=== PATIENT | male | born 1985 | race Hispanic/Latino ===

== ENCOUNTER 2019-12-09 22:04 | Emergency (ER) | payer OTHER ==
[2019-12-09] MEDS ORDERED: ASPIRIN 325 MG TABLET ONE (22:13)
[2019-12-09 22:23] LABS: BASOPHILS % (AUTO) 0.7 % (0.0-5.0); EOSINOPHILS % (AUTO) 4.1 % (0.0-8.0); HEMATOCRIT 42.9 % (42-54); LYMPHOCYTES % (AUTO) 29.6 % (21.0-51.0); MEAN CORPUSCULAR HEMOGLOBIN 29.3 pg (27.0-33.0); MEAN CORPUSCULAR HGB CONC 34.3 g/dL (32.0-36.0); MEAN CORPUSCULAR VOLUME 85.5 fL (79-99); MONOCYTES % (AUTO) 8.4 % (3.0-13.0); NEUTROPHILS % (AUTO) 56.5 % (40.0-77.0); PLATELET COUNT (AUTO) 276 K/uL (130-400); RED BLOOD CELL COUNT(AUTO) 5.02 MIL/uL (4.50-6.20); RED CELL DISTRIBUTION WIDTH 11.9 % (11.0-15.5); WHITE BLOOD COUNT (AUTO) 8.2 K/uL (4.8-10.8)
[2019-12-09 22:33] LABS: CREATININE 0.9 mg/dL (0.5-1.5); POTASSIUM 3.6 mmol/L (3.5-5.1)
[2019-12-09 22:35] LABS: INR 0.95 (0.85-1.15); PROTHROMBIN TIME 10.3 SEC (9.6-11.6)
[2019-12-09 22:38] LABS: BILIRUBIN,TOTAL 0.4 mg/dL (0.2-1.0); TOTAL PROTEIN, SERUM 7.5 g/dL (6.0-8.3)
[2019-12-09 22:44] LABS: APPEARANCE,URINE Clear (CLEAR); BILIRUBIN,URINE Negative (NEGATIVE); COLOR,URINE Yellow (YELLOW); GLUCOSE, URINE (UA) Negative (NEGATIVE); KETONES,URINE Trace mg/dL (NEGATIVE); LEUKOCYTE ESTERASE ,URINE Negative (NEGATIVE); NITRATE,URINE Negative (NEGATIVE); OCCULT BLOOD,URINE Negative (NEGATIVE); PROTEIN,URINE Negative (NEGATIVE)
[2019-12-09 22:52] LABS: AMPHET/METH SCREEN,URINE NEGATIVE (NEGATIVE); BARBITURATE SCREEN, URINE NEGATIVE (NEGATIVE); BENZODIAZEPINES SCREEN,URINE NEGATIVE (NEGATIVE); CANNABINOID SCREEN,URINE NEGATIVE (NEGATIVE); COCAINE SCREEN,URINE NEGATIVE (NEGATIVE); OPIATE SCREEN,URINE NEGATIVE (NEGATIVE); PHENCYCLIDINE SCREEN,URINE NEGATIVE (NEGATIVE)
[2019-12-09] MEDS ORDERED: MAG HYDROX/AL HYDROX/SIMETH ES 30 ML SUSP UDCUP ONE (23:58)
[2019-12-09] MEDS ORDERED: LIDOCAINE HCL 2% VISCOUS 15 ML UDCUP ONE (23:59)
[2019-12-09] MEDS ORDERED: FAMOTIDINE/PF 20 MG/2 ML VIAL IV ONE (23:59)
== END 2019-12-10 01:21 | disposition home or self-care (01) ==
LOC: EDH 22:04
DX: K29.70 Gastritis, unspecified, without bleeding (principal); R07.89 Other chest pain; I10 Essential (primary) hypertension; Z72.0 Tobacco use
CPT/HCPCS: 36415; 71045; 80053; 80305; 81003; 82550; 83690; 84484; 85025; 85610; 85730; 93005; 96361; 96374; J3490

== ENCOUNTER 2023-10-26 13:52 | Emergency (ER) | payer OTHER ==
[~2023-10-26] VITALS: Ht 165.1 cm; Wt 107.5 kg
[2023-10-26] MEDS ORDERED: NITROGLYCERIN 0.4 MG SL TAB SL PRN (14:00)
[2023-10-26 14:46] LABS: BASOPHILS # (AUTO) 0.06 K/uL (0.00-0.20); BASOPHILS % (AUTO) 0.8 % (0.0-5.0); HEMATOCRIT 44.3 % (42-54); IMMATURE GRANULOCYTE ABSOLUTE 0.03 K/uL (0-1); LYMPHOCYTES # (AUTO) 2.3 K/uL (1.0-4.8); LYMPHOCYTES % (AUTO) 30.6 % (21.0-51.0); MEAN CORPUSCULAR HEMOGLOBIN 30.2 pg (27.0-33.0); MEAN CORPUSCULAR HGB CONC 34.5 g/dL (32.0-36.0); MEAN CORPUSCULAR VOLUME 87.4 fL (79-99); MONOCYTES # (AUTO) 0.7 K/uL (0.1-1.0); MONOCYTES % (AUTO) 8.9 % (3.0-13.0); NEUTROPHILS # (AUTO) 4.1 K/uL (1.8-7.7); NEUTROPHILS % (AUTO) 55.3 % (40.0-77.0); PLATELET COUNT (AUTO) 265 K/uL (130-400); RED BLOOD CELL COUNT(AUTO) 5.07 MIL/uL (4.50-6.20); RED CELL DISTRIBUTION WIDTH 11.9 % (11.0-15.5); WHITE BLOOD COUNT (AUTO) 7.4 K/uL (4.8-10.8)
[2023-10-26] MEDS: ASPIRIN 325MG TAB PO ONE (14:48)
[2023-10-26 14:55] LABS: CREATININE 0.8 mg/dL (0.5-1.5); POTASSIUM 3.3 mmol/L (3.5-5.1)
[2023-10-26 14:59] LABS: BILIRUBIN,TOTAL 0.7 mg/dL (0.2-1.0); TOTAL PROTEIN, SERUM 7.6 g/dL (6.0-8.3)
[2023-10-26 16:54] VITALS: BP 130/74; PULSE 68; RESP 21; O2SAT 96
[2023-10-26] MEDS: KCL 20 MEQ ERTAB PO ONE (16:57)
== END 2023-10-26 17:08 | disposition home or self-care (01) ==
LOC: EDH 13:52
DX: R07.89 Other chest pain (principal); I10 Essential (primary) hypertension; R00.2 Palpitations; E87.6 Hypokalemia
CPT/HCPCS: 36415; 71045; 80053; 84484; 85025; 93005

== ENCOUNTER 2024-08-03 12:13 | Emergency (ER) | payer SELFPAY ==
[~2024-08-03] VITALS: Ht 165.1 cm; Wt 95.3 kg
[2024-08-03 13:09] LABS: CREATININE 0.8 mg/dL (0.5-1.3); POTASSIUM 4.1 mmol/L (3.5-5.1)
--- NOTE | 2024-08-03 13:09 | ERN ---
ED Note History of Present Illness Stated Complaint: CHEST PAIN Chief Complaint: Chest Pain Time Seen by MD: 12:16 Dictation: 39-year-old male presents to the ED for evaluation of intermittent chest pain onset last night. Patient denies any shortness a breath, vomiting, sweats or any other associated symptoms at this time. Patient mentioned he has had similar chest pain episodes before. Medical history HTN. Medications- losartan and rosuvastatin. Patient denies any chest pain at this moment. Allergies: Coded Allergies: No Known Drug Allergies (Unverified Allergy, Unknown, 10/26/23) Past Medical History Past Medical History: High Cholesterol, Hypertension Surgical History: None Review of System Dictation Constitutional: Negative for fever,chills, and weight loss Eyes: Negative for injury, pain,redness, and discharge ENT: Negative for injury,pain or swelling Cardiovascular: Positive for chest pain, negative for palpitations, and edema Respiratory: Negative for shortness of breath, cough, and wheezing, Abdomen/GI: Negative for abdominal pain, nausea, vomiting, diarrhea, and constipation Back: Negative for injury and pain : Negative for injury, bleeding and discharge MS/Extremity: Negative for injury and deformity Skin: Negative for rash, and discoloration Neuro: Negative for headache, weakness, numbness, tingling, and seizure Psych: Negative for suicide ideation, homicidal ideation, and hallucinations Initial Vital Sign VS Vital Signs Date Time Temp Pulse Resp B/P (MAP) Pulse Ox O2 Delivery O2 Flow Rate FiO2 08/03/24 12:14 98.4 66 20 140/87 98 Room Air 0 08/03/24 12:52 21 Physical Exam Dictation General: awake, alert, NAD Head/Face: Normocephalic, atraumatic Eyes: PERRL, EOMI, vision at baseline ENT: oral cavity clear, TMs clear, no signs of infection Neck: Trachea midline, supple, no nuchal rigidity Cardiovascular: RRR, normal S1/S2, No MRGs, no JVD Respiratory: CTAB, no respiratory distress, No rales or wheezes Abdomen: Soft, non-tender, non-distended, normal bowel sounds, no guarding or rebound. Skin: Warm, dry, normal turgor, no rash MS/Extremity: Pulses equal, no cyanosis, neurovascular intact, FROM Neuro: COAx4, GCS 15, strength 5/5, CN 2-12 intact, normal cerebellar exam, normal gait, Psych: Normal behavior, mood, and affect normal Results (Laboratory/Radiology) Laboratory/Radiology Laboratory Tests Test 08/03/24 12:39 08/03/24 13:06 08/03/24 13:48 08/03/24 15:03 White Blood Count 8.4 K/uL (4.8-10.8) Red Blood Count 5.35 MIL/uL (4.50-6.20) Hemoglobin 16.1 g/dL (14.0-18.0) Hematocrit 46.9 % (42-54) Mean Corpuscular Volume 87.7 fL (79-99) Mean Corpuscular Hemoglobin 30.1 pg (27.0-33.0) Mean Corpuscular Hemoglobin Concent 34.3 g/dL (32.0-36.0) Red Cell Distribution Width 11.8 % (11.0-15.5) Platelet Count 303 K/uL (130-400) Mean Platelet Volume 10.1 fL (7.5-10.5) Immature Granulocyte % (Auto) 0.7 % (0-1) Neutrophils (%) (Auto) 47.6 % (40.0-77.0) Lymphocytes (%) (Auto) 36.5 % (21.0-51.0) Monocytes (%) (Auto) 8.4 % (3.0-13.0) Eosinophils (%) (Auto) 6.1 % (0.0-8.0) Basophils (%) (Auto) 0.7 % (0.0-5.0) Neutrophils # (Auto) 4.0 K/uL (1.8-7.7) Lymphocytes # (Auto) 3.1 K/uL (1.0-4.8) Monocytes # (Auto) 0.7 K/uL (0.1-1.0) Eosinophils # (Auto) 0.51 K/uL (0.00-0.70) Basophils # (Auto) 0.06 K/uL (0.00-0.20) Absolute Immature Granulocyte (auto 0.06 K/uL (0-1) Nucleated Red Blood Cells 0.0 % (0.0-0.19) Sodium Level 138 mmol/L (136-145) Potassium Level 4.1 mmol/L (3.5-5.1) Chloride Level 103 mmol/L (101-111) Carbon Dioxide Level 28 mmol/L (21-32) Blood Urea Nitrogen 10 mg/dL (7-18) Creatinine 0.8 mg/dL (0.5-1.3) Glomerular Filtration Rate Calc 115 mL/min (>90) Random Glucose 102 mg/dL (70-105) Total Calcium 8.8 mg/dL (8.5-10.1) Total Creatine Kinase 119 U/L (21-232) B-Type Natriuretic Peptide 14 pg/mL (0-100) Troponin I < 0.05 ng/mL (0.00-0.05) Urine Color COLORLESS (YELLOW) Urine Appearance CLEAR (CLEAR) Urine pH 7.0 (5.0-8.0) Urine Specific [place] 1.009 (1.001-1.031) Urine Protein NEGATIVE mg/dL (NEGATIVE) Urine Glucose (UA) NEGATIVE mg/dL (NEGATIVE) Urine Ketones NEGATIVE mg/dL (NEGATIVE) Urine Occult Blood NEGATIVE (NEGATIVE) Urine Nitrate NEGATIVE (NEGATIVE) Urine Bilirubin NEGATIVE mg/dL (NEGATIVE) Urine Urobilinogen 0.2 mg/dL (0.2-1.0) Urine Leukocyte Esterase NEGATIVE Aide/uL Troponin I High Sensitivity 6 ng/L (4-75) Labs Reviewed?: Yes EKG Comment: EKG 08/03/2024 time 11:47 a.m. ventricular rate 65, sinus rhythm, incomplete right bundle branch block. No STEMI ED Course ED Course Orders Procedure Category Date Status Time Vital Signs Per CPOE 08/03/24 Transmitted Routine 12:16 B-Type Natriuretic LAB 08/03/24 Complete Peptide 12:16 Chest 1vw RAD 08/03/24 Resulted 12:16 12 Lead Ekg Tracing- EKG 08/03/24 Complete Technical 12:16 Oxygen By Nc/Pulse Ox CPOE 08/03/24 Transmitted 12:16 Maintain Iv CPOE 08/03/24 Transmitted 12:16 Iv Insertion CPOE 08/03/24 Transmitted 12:16 Cardiac Monitoring CPOE 08/03/24 Transmitted 12:16 Pulse Oximetry With CPOE 08/03/24 Transmitted Vs And Prn 12:16 Cbc With Differential LAB 08/03/24 Complete 12:16 Activity: Br W/Brp CPOE 08/03/24 Transmitted With Assist 12:16 Creatine Kinase, Total LAB 08/03/24 Complete 12:16 Urinalysis Profile LAB 08/03/24 Complete 12:16 Troponin Poc Order LAB 08/03/24 Complete Only 12:16 Bedside Troponin-I LAB.ER 08/03/24 In Process (Poc) 12:16 Basic Metabolic Panel LAB 08/03/24 Complete 12:16 Troponin I High LAB 08/03/24 Complete Sensitivity 14:52 Vital Signs Date Time Temp Pulse Resp B/P (MAP) Pulse Ox O2 Delivery O2 Flow Rate FiO2 08/03/24 13:58 98.8 68 16 137/89 97 Room Air* 0 21 08/03/24 12:52 98.8 69 16 141/93 99 Room Air* 0 21 08/03/24 12:14 98.4 66 20 140/87 98 Room Air 0 HEART Score Response (Comments) Value History: Low suspicion (0) 0 EKG: Normal 0 Age: < 45yrs (0) 0 Risk Factors: 1-2 risk factors (+1) 1 Initial Troponin: Normal limit (0) 0 HEART Score Risk: Low Risk for MACE (1-3) Total 1 Medical Decision Making MDM MDM: Differential diagnosis: Chest pain, atypical chest pain Previous outside records reviewed: Old ER visits. Need for hospitalization: Patient does not meet criteria for hospitalization. Need for emergency major/minor surgery: No Patient's prior external medical records from other ER visits were reviewed by me as indicated. Prior testing and results from previous visits were reviewed. Prior tests were taken into account with medical decision making and resource utilization, independent historian/historians were used to obtain complete medical history. I independently interpreted the test that were performed, results were reviewed by me and considered findings on radiology if ordered. Medical management and examination interpretation discussions were had by me with other qualified healthcare professionals as indicated for the patient's care. DX & DISP Disposition: Discharge Departure Impression: Primary Impression: Chest pain Condition: Stable Referrals: WILLY GUNDERSON MD (PCP) I have reviewed, & agreed with my scribe's, documentation. (Entered by Louie Galvan, acting as a scribe for Dr. Saucedo) I personally scribed for EILEEN SAUCEDO MD ([email or web address]) on 08/03/24 at 13:09. Electronically submitted by Louie Galvan ([email or web address]). EILEEN SAUCEDO MD Aug 03, 2024 13:09
[2024-08-03 13:20] LABS: B-TYPE NATRIURETIC PEPTIDE 14 pg/mL (0-100)
--- NOTE | 2024-08-03 13:21 | HMCIMG ---
CHEST 1VW HISTORY: Chest pain COMPARISON: 10/26/2023 FINDINGS: A frontal projection of the chest was obtained. No acute pulmonary infiltrates is seen. The heart is normal in size. Prominent interstitial markings are seen. Degenerative changes are seen. IMPRESSION: 1. No acute pulmonary infiltrate is seen.
--- NOTE | 2024-08-03 14:19 | EKG ---
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
[2024-08-03 14:49] LABS: BASOPHILS # (AUTO) 0.06 K/uL (0.00-0.20); BASOPHILS % (AUTO) 0.7 % (0.0-5.0); EOSINOPHILS # (AUTO) 0.51 K/uL (0.00-0.70); EOSINOPHILS % (AUTO) 6.1 % (0.0-8.0); HEMATOCRIT 46.9 % (42-54); IMMATURE GRANULOCYTE ABSOLUTE 0.06 K/uL (0-1); LYMPHOCYTES # (AUTO) 3.1 K/uL (1.0-4.8); LYMPHOCYTES % (AUTO) 36.5 % (21.0-51.0); MEAN CORPUSCULAR HEMOGLOBIN 30.1 pg (27.0-33.0); MEAN CORPUSCULAR HGB CONC 34.3 g/dL (32.0-36.0); MEAN CORPUSCULAR VOLUME 87.7 fL (79-99); MONOCYTES # (AUTO) 0.7 K/uL (0.1-1.0); MONOCYTES % (AUTO) 8.4 % (3.0-13.0); NEUTROPHILS % (AUTO) 47.6 % (40.0-77.0); PLATELET COUNT (AUTO) 303 K/uL (130-400); RED BLOOD CELL COUNT(AUTO) 5.35 MIL/uL (4.50-6.20); RED CELL DISTRIBUTION WIDTH 11.8 % (11.0-15.5); WHITE BLOOD COUNT (AUTO) 8.4 K/uL (4.8-10.8)
[2024-08-03 14:51] LABS: APPEARANCE,URINE CLEAR (CLEAR); BILIRUBIN,URINE NEGATIVE (NEGATIVE); COLOR,URINE COLORLESS (YELLOW); GLUCOSE, URINE (UA) NEGATIVE (NEGATIVE); KETONES,URINE NEGATIVE (NEGATIVE); LEUKOCYTE ESTERASE ,URINE NEGATIVE Leu/uL (NEGATIVE); NITRATE,URINE NEGATIVE (NEGATIVE); OCCULT BLOOD,URINE NEGATIVE (NEGATIVE); PROTEIN,URINE NEGATIVE (NEGATIVE); UROBILINOGEN,URINE 0.2 mg/dL (0.2-1.0)
[2024-08-03 15:05] LABS: ADD UA MICROSCOPIC NO
[2024-08-03 16:24] VITALS: BP 124/79; PULSE 73; RESP 16; TEMP 97.8; O2SAT 98
--- NOTE | 2024-08-03 16:31 | NUR ---
PT AAOX4, PT STABLE, NO C/O PAIN PT GIVEN INSTRUCTIONS FOR HOME, PT DRIVEN HOME BY WITH PERSONAL BELONGINGS.
== END 2024-08-03 16:36 ==
LOC: EDH 12:13
DX: R07.89 Other chest pain (principal); E78.00 Pure hypercholesterolemia, unspecified; I10 Essential (primary) hypertension
CPT/HCPCS: 36415; 71045; 80048; 81003; 82550; 83880; 84484; 85025; 93005; 99285